=== PATIENT | male | born 1935 | race Caucasian/White ===

== ENCOUNTER 2016-11-29 09:04 | Inpatient (IN) | payer MEDICARE, OTHER ==
[~2016-11-29] VITALS: Ht 179.1 cm; Wt 97.3 kg
[2016-11-29] MEDS ORDERED: CHOL1CAP32 PO (09:35)
[2016-11-29] MEDS ORDERED: LISI-515 PO (09:35)
[2016-11-29] MEDS ORDERED: CO Q200C PO (09:35)
[2016-11-29] MEDS ORDERED: VITACAP7 PO (09:35)
[2016-11-29] MEDS ORDERED: OCUVTAB PO (09:35)
[2016-11-29] MEDS ORDERED: LEVO75TA3 PO (09:35)
[2016-11-29] MEDS ORDERED: MULT-65 PO (09:35)
[2016-11-29] MEDS ORDERED: GLUC1TAB38 PO (09:35)
[2016-11-29] MEDS ORDERED: CLIN1CAP5 PO (09:37)
[2016-12-10] MEDS ORDERED: ceFAZolin 2 GM PREMIX 50 ML IV SCH (07:45)
[2016-12-10] MEDS ORDERED: POVIDONE IODINE 5% (ANTISEPSIS KIT) 4 APPLICATIONS EACH NARE PRN (07:45)
[2016-12-10] MEDS ORDERED: CHLORHEXIDINE GLUCONATE 2 % 1 PACK (2 CLOTHS) TOPICAL PRN (07:45)
[2016-12-10] MEDS ORDERED: METOPROLOL TARTRATE 25 MG TAB PO PRN (07:45)
[2016-12-10] MEDS ORDERED: CHLORHEXIDINE GLUCONATE 4% SOLN 120 ML BTL TOPICAL SCH (07:45)
[2016-12-10] MEDS ORDERED: INSULIN HUMAN REGULAR 1,000 UNITS/10 ML VIAL SQ PRN (07:45)
[2016-12-10] MEDS ORDERED: SODIUM CHLORID 0.9% 500 ML IV PRN (07:45)
[2016-12-10] MEDS ORDERED: LACTATED RINGER'S 1000 ML IV PRN (07:45)
[2016-12-10 07:59] VITALS: BP 142/75; PULSE 52; RESP 18; TEMP 97.2; O2SAT 95
[2016-12-10] MEDS ORDERED: TRANEXAMIC ACID IV SCH ×4 (08:00)
[2016-12-10] MEDS ORDERED: SODIUM CHLORIDE 0.9% IV SCH ×4 (08:00)
[2016-12-10] MEDS ORDERED: GENTAMICIN SULFATE 80 MG/2 ML VIAL ONE (08:00)
[2016-12-10] MEDS ORDERED: EXPAREL PERI-ARTICULAR INJECTION (TOTAL VOL. 100 ML) P-ARTICULR SCH ×2 (08:00)
[2016-12-10] MEDS ORDERED: FAMOTIDINE 20 MG/2 ML VIAL ONE ×2 (08:52→09:33)
[2016-12-10] MEDS ORDERED: DEXAMETHASONE SOD PHOS 4 MG/ML VIAL ONE (09:33)
[2016-12-10] MEDS ORDERED: ACETAMINOPHEN 1000 MG/100 ML VIAL IV ONE (09:33)
[2016-12-10] MEDS ORDERED: MIDAZOLAM HCL 2 MG/2 ML VIAL ONE (09:33)
[2016-12-10] MEDS ORDERED: MAGNESIUM HYDROXIDE SUSP 30 ML CUP PO PRN (09:45)
[2016-12-10] MEDS ORDERED: ONDANSETRON HCL 4 MG/2 ML VIAL IVP PRN (09:45)
[2016-12-10] MEDS ORDERED: SODIUM CHLORIDE 0.9% FLUSH 5 ML FLUSH IVF PRN (09:45)
[2016-12-10] MEDS ORDERED: ACETAMINOPHEN/HYDROcodone 325 MG/7.5 MG TAB PO PRN ×2 (09:45)
[2016-12-10] MEDS ORDERED: CLINDAMYCIN 150 MG CAP PO PRN (09:45)
[2016-12-10] MEDS ORDERED: Post-op Orders (for Pharmacy) MISC XX ONE (09:45)
[2016-12-10] MEDS ORDERED: ZOLPIDEM TARTRATE 5 MG TAB PO PRN (09:45)
[2016-12-10] MEDS ORDERED: MORPHINE SULFATE 4 MG/ML INJ IV PUSH PRN (09:45)
[2016-12-10] MEDS ORDERED: TRANEXAMIC ACID INJ 0 MG in SODIUM CHLORIDE 0.9% INJ 100 ML IV SCH (09:45)
[2016-12-10] MEDS ORDERED: BUPIVACAINE LIPOSOME PF 1.3% 20 ML VIAL ONE (10:16)
[2016-12-10] MEDS ORDERED: PROPOFOL 200 MG/20 ML AMP IV ONE (12:00)
[2016-12-10] MEDS ORDERED: ONDANSETRON HCL 4 MG/2 ML VIAL IV PUSH ONE (12:00)
[2016-12-10] MEDS ORDERED: ePHEDrine/NS 25 MG/5 ML SYR IV ONE (12:00)
[2016-12-10] MEDS ORDERED: LACTATED RINGER'S 1000 ML INJ 1,000 ML IV ONE (12:00)
--- NOTE | 2016-12-10 12:30 | HHI.FF ---
Face to Face Verification Diagnosis: (1) Status post total left knee replacement Physical Therapy Gait training Knee: Total knee, Protocol: Left, Gait training, Full weight bearing Left LE Weight Bearing: WB as tolerated Left LE Range of Motion: Active ROM (AROM, AAROM, PROM, PRE. ROM goal is 0 to 140 degrees. ROM in the OR was 0 to 150 degrees.) Nursing Nursing: Dressing changes Dressing Changes: Daily dressing change, Coverderm/Primapore Additional Instructions Remove steristrips on postop day 14. I have seen patient Yury Carlson on 12/10/16. My clinical findings support the need for the requested home health care services because: Ltd mobility - disease progression Limited ability to care for self High risk of falls I certify that my clinical findings support that this patient is homebound because: Post-op weakness Unsteady gait/balance Unsafe to leave home unassisted Eduardo Sandoval MD (Charles) Dec 10, 2016 12:29
[2016-12-10] MEDS: LACTATED RINGER'S 1000 ML INJ 1,000 ML IV SCH ×2 (13:00→22:10)
[2016-12-10] MEDS ORDERED: MORPHINE SULFATE 8 MG/ML INJ ONE (13:03)
[2016-12-10] MEDS: KETOROLAC TROMETHAMINE 30 MG/ML (IVP) VIAL IVP SCH ×2 (13:10→18:47)
--- NOTE | 2016-12-10 13:40 | RADRPT ---
EXAM DATE/TIME: 12/10/2016 12:50 [facility] COMPARISON: No previous studies available for comparison. INDICATIONS : Post op left knee. MEDICAL HISTORY : None. SURGICAL HISTORY : None. ENCOUNTER: Initial ACUITY: 1 day PAIN SCORE: 0/10 LOCATION: Left Knee. FINDINGS: Left total knee arthroplasty has been performed. The tibial and femoral components appear well seated . A surgical drain is noted anterior suprapatellar region. CONCLUSION: Postoperative changes. Raphael Mackey MD on December 10, 2016 at 13:37 Board Certified Radiologist. This report was verified electronically.
[2016-12-10 14:00] VITALS: BP 143/74; PULSE 73; RESP 17; TEMP 95.1; O2SAT 99
[2016-12-10] MEDS ORDERED: DO NOT ADM ANY ANTICOAGULANT DRUGS PRN (14:45)
--- NOTE | 2016-12-10 14:58 | PD.CONS ---
HPI Service [facility] Consult Requested By Dr. Sandoval Reason for Consult medical management Primary Care Physician Rico Zamora M.D. Diagnoses: History of Present Illness This a pleasant 81-year-old elderly male who is generally in good health, prior history of bilateral hip replacement due to OA. Patient has history of osteoarthritis of the left knee. He was admitted for elective surgery, underwent a left total knee arthroplasty. Patient tolerated surgical procedure well, he has minimal pain. Hospitalist services are requested for medical management. Review of Systems Constitutional: DENIES: Diaphoretic episodes, Fatigue, Fever, Weight gain, Weight loss, Chills, Dizziness, Change in appetite, Night Sweats Endocrine: DENIES: Heat/cold intolerance, Polydipsia, Polyuria, Polyphagia Eyes: DENIES: Blurred vision, Diplopia, Eye inflammation, Eye pain, Vision loss , Photosensitivity, Double Vision Ears, nose, mouth, throat: DENIES: Tinnitus, Hearing loss, Vertigo, Nasal discharge, Oral lesions, Throat pain, Hoarseness, Ear Pain, Running Nose, Epistaxis, Sinus Pain, Toothache, Odynophagia Respiratory: DENIES: Apneas, Cough, Snoring, Wheezing, Hemoptysis, Sputum production, Shortness of breath Cardiovascular: DENIES: Chest pain, Palpitations, Syncope, Dyspnea on Exertion , PND, Lower Extremity Edema, Orthopnea, Claudication Gastrointestinal: DENIES: Abdominal pain, Black stools, Bloody stools, Constipation, Diarrhea, Nausea, Vomiting, Difficulty Swallowing, Anorexia Genitourinary: DENIES: Sexual dysfunction, Urinary frequency, Urinary incontinence, Urgency, Hematuria, Dysuria, Nocturia, Penile Discharge, Testicular Pain, Testicular Swelling Musculoskeletal: COMPLAINS OF: Joint pain, DENIES: Muscle aches, Stiffness, Joint Swelling, Back pain, Neck pain Integumentary: DENIES: Abnormal pigmentation, Nail changes, Pruritus, Rash Hematologic/lymphatic: DENIES: Bruising, Lymphadenopathy Immunologic/allergic: DENIES: Eczema, Urticaria Neurologic: DENIES: Abnormal gait, Headache, Localized weakness, Paresthesias, Seizures, Speech Problems, Tremor, Poor Balance Psychiatric: DENIES: Anxiety, Confusion, Mood changes, Depression, Hallucinations, Agitation, Suicidal Ideation, Homicidal Ideation, Delusions Past Family Social History Past Medical History OA skin cancer hypothyroid HTN Dupuytrens contractures Bradycardia Past Surgical History Right ankle replacement Bilateral hip replacement Dupuytren contractures surgery. Tonsillectomy Reported Medications Reported Meds & Active Scripts Active Reported Clindamycin (Clindamycin HCl) 150 Mg Cap 600 Mg PO DAILY PRN Co Q-10 (Coenzyme Q10 (Ubidecarenone)) 200 Mg Cap 200 Mg PO DAILY D3-1000 (Cholecalciferol) 1,000 Unit Cap 1 Unit PO DAILY B Complex (B-Complex Vitamins) 1 Cap 1 Cap PO DAILY Ocuvite (Multiple Vitamins W/ Minerals) 1 Tab 1 Tab PO DAILY Multi-Vitamin Daily (Multiple Vitamin) 1 Tab Tab 1 Tab PO DAILY Vzzaqiqglv-Moifvaoized-N[place]H Tab (Gluc/Shamar-MSM#2/C/D3/Jose/Born) 1 Each Tablet 3 Tab PO DAILY Levothyroxine (Levothyroxine Sodium) 75 Mcg Tab 75 Mcg PO DAILY Lisinopril 20 Mg Tab 20 Mg PO DAILY Allergies: Coded Allergies: No Known Allergies (Verified , 12/10/16) Active Ordered Medications Inpatient Medications Acetaminophen/ Hydrocodone Bitart ([place] 7.5-325 Mg) 2 tab Q4H PRN PO PAIN SCALE 5 TO 10; Start 12/10/16 at 09:45 Aspirin (Ecotrin Ec) 81 mg BID PO ; Start 12/10/16 at 21:00 Bupivacaine Liposome 20 ml/ Sodium Chloride 100 ml @ 200 mls/hr ONCE P- ARTICULR Last administered on 12/10/16 10:35; Start 12/10/16 at 08:00; Stop at 07:59 Cefazolin Sodium/ Dextrose 50 ml @ 100 mls/hr HORSE RACING ANALYST IV Last administered on 12/10/16 10:09; Start 12/10/16 at 07:45; Stop 12/10/16 at 10:47; Status DC Cefazolin Sodium/ Sodium Chloride (Ancef Inj/NS Inj) 100 ml @ 200 mls/hr Q6H IV ; Start 12/10/16 at 16:00; Stop 12/11/16 at 04:29 Chlorhexidine Gluconate (Chlorhexidine 2% Cloth) 3 pack HORSE RACING ANALYST PRN TOPICAL SEE LABEL COMMENTS Last administered on 12/10/16 07:20; Start 12/10/16 at 07:45 ; Stop 12/13/16 at 07:44 Chlorhexidine Gluconate 1 applic 1 applic ONCE TOPICAL ; Start 12/10/16 at 07:45 ; Stop 12/13/16 at 07:44 Cholecalciferol (Vitamin D3) 1,000 units DAILY PO ; Start 12/11/16 at 09:00 Clindamycin HCl (Cleocin) 600 mg UNSCH X1 PRN PO dental work; Start 12/10/16 at 09:45; Stop 12/13/16 at 09:44 Docusate Sodium (Colace) 100 mg BID PO ; Start 12/11/16 at 21:00 Insulin Human Regular (NovoLIN R INJ) See Protocol Table ... HORSE RACING ANALYST PRN SQ SEE PROTOCOL TABLE; Start 12/10/16 at 07:45; Stop 12/13/16 at 07:44 IV Flush (NS Flush) 2 ml UNSCH PRN IVF FLUSH AFTER USING IV ACCESS; Start 12/10 at 09:45 IV Flush 2 ml 2 ml BID IVF ; Start 12/10/16 at 21:00 Ketorolac Tromethamine 15 mg 15 mg Q6H IVP ; Start 12/10/16 at 13:00; Stop 12/12 at 07:01 Lactated Ringer's (Lr 1000 ml Inj) 1,000 ml @ 80 mls/hr [id number] IV ; Start at 09:40 Levothyroxine Sodium (Synthroid) 75 mcg DAILY@0600 PO ; Start 12/11/16 at 06:00 Lisinopril (Prinivil) 20 mg DAILY PO ; Start 12/11/16 at 09:00 Magnesium Hydroxide (Milk Of Magnesia Liq) 30 ml DAILY PRN PO CONSTIPATION; Start 12/10/16 at 09:45 Metoprolol Tartrate (Lopressor) 25 mg HORSE RACING ANALYST PRN PO SEE LABEL COMMENTS; Start 12/10/16 at 07:45; Stop 12/13/16 at 07:44 Miscellaneous Information ALL NURSING DEPARTME... UNSCH PRN .XX SEE LABEL COMMENTS; Start 12/10/16 at 14:45; Stop 12/11/16 at 14:44 Miscellaneous Information (Post-op Orders (for Pharmacy)) STAT ONCE XX ; Start 12/10/16 at 09:45; Stop 12/10/16 at 13:48; Status DC Morphine Sulfate (Morphine Inj) 4 mg Q3H PRN IV PUSH BREAKTHROUGH PAIN; Start 12/10/16 at 09:45 Multivitamins (Theragran) 1 tab DAILY PO ; Start 12/11/16 at 09:00 Non-Formulary Medication 3 tab DAILY PO ; Start 12/11/16 at 09:00; Stop at 09:00; Status DC Ondansetron HCl (Zofran Inj) 4 mg Q6H PRN IVP NAUSEA OR VOMITING; Start at 09:45 Povidone Iodine (Betadine 5% Antisepsis Kit) 1 applic HORSE RACING ANALYST PRN EACH NARE SEE LABEL COMMENTS Last administered on 12/10/16t 07:55; Start 12/10/16 at 07:45 ; Stop 12/13/16 at 07:44 Sodium Chloride (NS 500 ml Inj) 500 ml @ 30 mls/hr [id number] PRN IV SEE LABEL COMMENTS; Start 12/10/16 at 07:45; Stop 12/10/16 at 10:47; Status DC Tranexamic Acid 967 mg/Sodium Chloride 109.67 ml @ 200 mls/ hr ONCE IV ; Start 12/10/16 at 08:00; Stop 12/11/16 at 07:59 Tranexamic Acid/ Sodium Chloride (Cyklokapron Inj/ NS Inj) 100 ml @ 200 mls/hr UNSCH IV ; Start 12/10/16 at 09:45; Stop 12/10/16 at 10:48; Status DC Vit C/Vit E/Zinc/ Copper/Lutein (Ocuvite) 1 tab DAILY PO ; Start 12/11/16 at 09: 00 Vitamin B Complex/ Vitamin C (Allbee C) 1 tab DAILY PO ; Start 12/11/16 at 09:00 Zolpidem Tartrate (Ambien) 5 mg HS PRN PO SLEEP; Start 12/10/16 at 09:45 Family History Positive for Alzheimer's dementia Social History , has grown children. Active, plays golf, swims. Quit smoking, drinks 1.5 glass of wine per day, no illegal drug use. Physical Exam Vital Signs Vital Signs Date Time Temp Pulse Resp B/P Pulse Ox O2 Delivery O2 Flow Rate FiO2 12/10/16 07:59 97.2 52 18 142/75 95 Physical Exam GENERAL: This is a well-nourished, well-developed patient, in no apparent distress. SKIN: No rashes, ecchymoses or lesions. Cool and dry. HEAD: Atraumatic. Normocephalic. No temporal or scalp tenderness. EYES: Pupils equal round and reactive. Extraocular motions intact. No scleral icterus. No injection or drainage. ENT: Nose without bleeding, purulent drainage or septal hematoma. Throat without erythema, tonsillar hypertrophy or exudate. Uvula midline. Airway patent. NECK: Trachea midline. No JVD or lymphadenopathy. Supple, nontender, no meningeal signs. CARDIOVASCULAR: Regular rate and rhythm without murmurs, gallops, or rubs. RESPIRATORY: Clear to auscultation. Breath sounds equal bilaterally. No wheezes , rales, or rhonchi. GASTROINTESTINAL: Abdomen soft, non-tender, nondistended. No hepato-splenomegaly , or palpable masses. No guarding. MUSCULOSKELETAL: Left leg in CPM, intact sensation left foot. Able to dorsiflex left foot. No other joint abnormality. NEUROLOGICAL: Awake and alert and oriented 4. No focal deficits. Laboratory Laboratory Tests Test 12/10/16 07:58 Blood Type A POSITIVE Antibody Screen NEGATIVE Blood Bank Comment Imaging Last Impressions Knee X-Ray 12/10/16 0940 Signed Impressions: Service Date/Time: Saturday, December 10, 2016 12:50 - CONCLUSION: Postoperative changes. Raphael Mackey MD A/P Diagnosis: (1) Primary osteoarthritis of left knee (2) Status post total left knee replacement (3) Hypothyroid (4) HTN (hypertension) Assessment and Plan Thank you for this consultation, we will assist with medical management 81-year-old male with history of arthritis, status post left total knee arthroplasty. -Continue postoperative orthopedic care SHAWANDA hose and aspirin for DVT prophylaxis Continue with pain management Bowel regimen Physical therapy -Continue postoperative antibiotics Hypertension, stable Continue with lisinopril 20 mg by mouth daily Hypothyroid Continue with Synthroid 75 g by mouth daily CBC and BMP in the morning Plan of care discussed with patient, attending and registered nurse. Further management of the patient will be dependent on the hospital course This patient was seen by myself and Dr. Villagomez, this consultation is written on his behalf Problem Qualifiers (1) Hypothyroid: Qualified Code: E03.9 - Hypothyroidism, unspecified type (2) HTN (hypertension): Qualified Code: I10 - Essential hypertension Batool Castro Dec 10, 2016 14:58
[2016-12-10 16:00] VITALS: BP 132/72; PULSE 60; RESP 16; TEMP 95.1; O2SAT 100
[2016-12-10 18:52] VITALS: O2SAT 94
[2016-12-10 20:30] VITALS: BP 145/83; PULSE 59; RESP 18; TEMP 96.4; O2SAT 100
[2016-12-10] MEDS: ASPIRIN EC 81 MG TABEC PO SCH (22:44)
[2016-12-10] MEDS: SODIUM CHLORIDE 0.9% FLUSH 5 ML FLUSH IVF SCH (22:45)
[2016-12-11 00:30] VITALS: BP 121/62; PULSE 59; RESP 18; TEMP 96.6; O2SAT 98
[2016-12-11] MEDS: KETOROLAC TROMETHAMINE 30 MG/ML (IVP) VIAL IVP SCH ×3 (00:37→12:03)
[2016-12-11 04:00] VITALS: BP 107/63; PULSE 66; RESP 17; TEMP 97.2; O2SAT 97
[2016-12-11] MEDS ORDERED: LEVOTHYROXINE SODIUM 75 MCG TAB PO SCH (06:00)
--- NOTE | 2016-12-11 06:59 | PD.ORT.PN ---
Subjective Post Op Day #: 1 Subjective Remarks He is doing well with little pain. He was OOB to the chair. Range of Motion -15 to 94 degrees. Distance Walked 2 feet. Objective Vitals Vital Signs Date Time Temp Pulse Resp B/P Pulse Ox O2 Delivery O2 Flow Rate FiO2 12/11/16 04:00 97.2 66 17 107/63 97 12/11/16 01:37 18 12/11/16 00:30 96.6 59 18 121/62 98 12/10/16 21:00 Room Air 12/10/16 20:30 96.4 59 18 145/83 100 12/10/16 18:52 94 Nasal Cannula 2.00 12/10/16 16:00 95.1 60 16 132/72 100 12/10/16 14:00 95.1 73 17 143/74 99 12/10/16 13:30 58 18 131/78 98 Nasal Cannula 2 12/10/16 13:15 57 18 136/83 99 Nasal Cannula 2 12/10/16 13:00 59 18 126/73 97 Nasal Cannula 2 12/10/16 12:45 97.4 63 18 127/67 98 Nasal Cannula 2 12/10/16 07:59 97.2 52 18 142/75 95 I/O 12/10/16 12/10/16 12/10/16 12/11/16 12/11/16 12/11/16 07:00 15:00 23:00 07:00 15:00 23:00 Intake Total 1790 ml 480 ml 600 ml Output Total 325 ml 750 ml 850 ml Balance 1465 ml -270 ml -250 ml Intake Oral 240 ml 480 ml 600 ml IV Total 250 ml Other 1300 ml Output Urine Total 0 ml 500 ml 750 ml Drainage Total 175 ml 250 ml 100 ml Estimated Blood Loss 150 ml # Bowel Movements 0 0 Imaging Last 24 hours Impressions Knee X-Ray 12/10/16 0940 Signed Impressions: Service Date/Time: Saturday, December 10, 2016 12:50 - CONCLUSION: Postoperative changes. Raphael Mackey MD Objective Remarks He is resting comfortably, supine in bed in the CPM. The neurovascular status is intact. The dressing is dry and intact. Assessment & Plan Ortho Post Op Day #: 1 Problem List: (1) Status post total left knee replacement Plan: Continue postop care and PT. Assessment and Plan Condition: Good. Orthopaedically stable. DVT prophylaxis: ASA, TEDs, sequentials. Discharge plans : Home with C. Has appointment. Rx [place] 7.5/325 Eduardo Sandoval MD (Charles) Dec 11, 2016 06:59
[2016-12-11 07:28] LABS: HEMATOCRIT 34.4 % (39.0-51.0); REVIEW FLAG FINAL
[2016-12-11 07:31] VITALS: O2SAT 95
[2016-12-11] MEDS ORDERED: ASPI-99 PO (07:35)
[2016-12-11] MEDS ORDERED: HYDR-3580 PO (07:35)
[2016-12-11 07:41] VITALS: BP 115/66; PULSE 52; RESP 17; TEMP 96.5; O2SAT 99
[2016-12-11] MEDS: ASPIRIN EC 81 MG TABEC PO SCH (08:33)
[2016-12-11] MEDS: SODIUM CHLORIDE 0.9% FLUSH 5 ML FLUSH IVF SCH (08:33)
[2016-12-11] MEDS ORDERED: LISINOPRIL 20 MG TAB PO SCH (09:00)
[2016-12-11] MEDS ORDERED: [UNRECOGNIZED DRUG - OTHER] PO SCH (09:00)
[2016-12-11] MEDS ORDERED: COENZYME Q10 200 MG PO SCH (09:00)
[2016-12-11] MEDS ORDERED: MULTIVITAMIN-OPHTHALMIC 1 TAB PO SCH (09:00)
[2016-12-11] MEDS ORDERED: VITAMIN B COMPLEX/VIT C TAB PO SCH (09:00)
[2016-12-11] MEDS ORDERED: CHOLECALCIFEROL (VIT D3) 1000 UNIT TAB PO SCH (09:00)
[2016-12-11] MEDS ORDERED: MULTIVITAMIN TAB PO SCH (09:00)
[2016-12-11] MEDS: LACTATED RINGER'S 1000 ML INJ 1,000 ML IV SCH (10:40)
[2016-12-11 11:49] VITALS: BP 117/70; PULSE 76; RESP 17; TEMP 96.8; O2SAT 99
--- NOTE | 2016-12-11 12:11 | HHI.PR ---
Subjective Remarks Patient did walk today Offering no complaint Some ache at surgical site only Review of system for 10 point system otherwise unremarkable Objective Objective Results - Vital Signs Date Time Temp Pulse Resp B/P Pulse Ox O2 Delivery O2 Flow Rate FiO2 12/11/16 11:49 96.8 76 17 117/70 99 12/11/16 07:41 96.5 52 17 115/66 99 12/11/16 07:40 18 12/11/16 07:31 95 21 12/11/16 07:20 Room Air 12/11/16 04:00 97.2 66 17 107/63 97 12/11/16 00:30 96.6 59 18 121/62 98 12/10/16 21:00 Room Air 12/10/16 20:30 96.4 59 18 145/83 100 12/10/16 18:52 94 Nasal Cannula 2.00 12/10/16 16:00 95.1 60 16 132/72 100 12/10/16 14:00 95.1 73 17 143/74 99 12/10/16 13:30 58 18 131/78 98 Nasal Cannula 2 12/10/16 13:15 57 18 136/83 99 Nasal Cannula 2 12/10/16 13:00 59 18 126/73 97 Nasal Cannula 2 12/10/16 12:45 97.4 63 18 127/67 98 Nasal Cannula 2 I/O 12/10/16 12/10/16 12/10/16 12/11/16 12/11/16 12/11/16 06:59 14:59 22:59 06:59 14:59 22:59 Intake Total 1550 ml 720 ml 600 ml Output Total 325 ml 750 ml 850 ml Balance 1225 ml -30 ml -250 ml Intake Oral 720 ml 600 ml IV Total 250 ml Other 1300 ml Output Urine Total 0 ml 500 ml 750 ml Drainage Total 175 ml 250 ml 100 ml Estimated Blood Loss 150 ml # Bowel Movements 0 0 Result Diagram: 12/11/16 0600 Imaging Last Impressions Knee X-Ray 12/10/16 0940 Signed Impressions: Service Date/Time: Saturday, December 10, 2016 12:50 - CONCLUSION: Postoperative changes. Raphael Mackey MD Other Results Laboratory Tests Test 12/11/16 06:00 Hemoglobin 11.8 Hematocrit 34.4 Physical Exam Physical Exam GENERAL: This is a well-nourished, well-developed patient, in no apparent distress. SKIN: No rashes, ecchymoses or lesions. Cool and dry. HEAD: Atraumatic. Normocephalic. EYES: Extraocular motions intact. No scleral icterus. No injection or drainage. ENT: Airway patent. NECK: Trachea midline. No JVD. Supple CARDIOVASCULAR: Regular rate and rhythm without murmurs, gallops, or rubs. RESPIRATORY: Clear to auscultation. Breath sounds equal bilaterally. No wheezes , rales, or rhonchi. GASTROINTESTINAL: Abdomen soft, non-tender, nondistended. No hepato-splenomegaly , or palpable masses. No guarding. MUSCULOSKELETAL: Left leg in dressing. Intact sensation left foot. Able to dorsiflex left foot. No other joint abnormality. NEUROLOGICAL: Awake and alert and oriented 4. No focal deficits. A/P Assessment and Plan (1) Primary osteoarthritis of left knee (2) Status post total left knee replacement (3) Hypothyroid (4) HTN (hypertension) Plan 81-year-old male with history of arthritis, status post left total knee arthroplasty. -Continue postoperative orthopedic care SHAWANDA hose and aspirin for DVT prophylaxis Continue with pain management Bowel regimen Physical therapy -postoperative antibiotics as per orthopedic Hypertension, stable Continue with lisinopril 20 mg by mouth daily Hypothyroid Continue with Synthroid 75 g by mouth daily Labs reviewed Plan of care discussed with patient Hallie Villagomez MD Dec 11, 2016 12:11
[2016-12-11] MEDS ORDERED: DOCUSATE SODIUM 100 MG CAP PO SCH (21:00)
--- NOTE | 2016-12-12 09:07 | MP ---
cc: Mary FERGUSON. DATE OF SURGERY 12/10/2016 PREOPERATIVE DIAGNOSIS Primary osteoarthritis left knee POSTOPERATIVE DIAGNOSIS Primary osteoarthritis left knee OPERATION PERFORMED Left total knee arthroplasty with [place] Triathlon prosthesis (uncemented). SURGEON Katja Ferguson MD ASSESSMENT Jason Crump, CSFA ANESTHESIA Spinal with supplemental adductor canal block by Dr. Debra MD and supplemental local by the undersigned. INDICATIONS AND FINDINGS This 81-year-old man has had left knee pain for some several years worsening, especially five years ago. He has had treatment with arthroscopic surgery several times over the years. His pain has subsequently worsened recently so that he is only able to walk one-half mile because of the pain. He has catching. He has lateral pain. He has giving-way and cracking and difficulty standing from a seated position. Treatment has included analgesics, anti-inflammatory agents, activity modification, exercise, ambulatory aids without any improvement. Physical findings showed severe laxity in the lateral compartment with a genu valgum and an antalgic gait. There was crepitation and tenderness on motion. X-rays showed loss of articular cartilage to expose subchondral bone and [id number] appearance on the lateral side with osteophytes. There are tricompartmental osteophytes. There is also calcification in the soft tissues consistent with chondrocalcinosis. The prosthesis used was a [place] Triathlon prosthesis with the femur being a size 7 right cruciate-retaining uncemented, the tibia being a Tritanium baseplate of a size 8 with the spacer being a size 8 x 9 mm cruciate-retaining a of X3 polyethylene and the patella being a Tritanium backed 38 mm asymmetric patella. PROCEDURE The patient was brought to the clean-air operating suite. He received prophylactic antibiotics in the form of Ancef and also received tranexamic acid. Dr. Richardson did a spinal anesthetic and an abductor canal block. The patient was then placed in a supine position on the operating table with bolster under the left hip. A Pneumatic tourniquet was applied to the left thigh. The limb was prepped with alcohol, Hibiclens and Chloraprep and draped in the usual manner with the knee draped free. An appropriate time-out procedure was carried out. Local anesthesia was administered into the incision site with Exparel. The incision was then made from about three fingerbreadths above the superior medial pole of patella down to the tibial tubercle on the medial side. The incision was deepened through subcutaneous tissues to the retinacular structures which were exposed medially and laterally. A medial retinacular incision was made from the superior medial pole of patella down to the tibial tubercle and up into the quadriceps tendon splitting it longitudinally in the medial one third. The patella was reflected. The posterior surface of the patella was excised after debulking the infrapatellar fat pad. Medial and lateral meniscectomies were initiated. Medial and lateral dissection was carried out. Fenestrations were made in the distal end of the femur and proximal end of the tibia for intermedullary referencing guides. The distal femoral cutting guide and jig were assembled for a 5 degrees 8-mm cut. The cutting block was stabilized with pins. The jig was removed. The distal femoral cut was completed with the oscillating saw. The sizing guide was positioned on the femur along the white sides line in the epicondylar axis. The size was determined to be a size 7. The four-in-one cutting block was then positioned in place. Anterior and posterior cuts were made followed by posterior and anterior chamfer cuts. Osteophytes were trimmed. Attention was directed the tibia. The intramedullary referencing guide was positioned in place. This was stabilized with a pin for rotation. The depth of cut was verified with a stylus off the lateral side, setting to resect 2 mm under the low edge. When the cutting block was stabilized with pins, the depth of cut was verified with a spacer block. This was adjusted accordingly. The distal femoral cut was then completed with the oscillating saw taking care to avoid injury to associated structures. The proximal tibial bone fragment was then removed. The spacer block was again used to verify the appropriate depth of cut. The tibial baseplate trial chosen was a size 8. Bone plugs were placed in the distal femur and proximal tibia. A size 8 baseplate trial was positioned in place with a 9 mm spacer. Size 7 femoral trial was impacted onto the femur. The drill guide was positioned for a 38 mm asymmetric patella. Drill holes were made. The trial prosthesis was placed. The knee was taken through a range of motion which was easily 0 degrees extension to 150 degrees of flexion with excellent stability throughout the entire range and appropriate tracking of the patella. The patella trial was removed. Femoral drill holes were made and then this trial removed. The spacer was removed. The tibial punch was impacted through its guide and then removed. The tibial drill guide was position and drill holes made. The cut ends of bone were then cleaned with pulse lavage. Local anesthetic was administered throughout the knee with Exparel. Care was taken to be certain that there was an adequate amount in the posterior capsule. The tibial baseplate, which is a size 8, was impacted into place and seated appropriately. The 9 mm cruciate-retaining spacer was inserted. The femoral component was impacted onto the cleaned and dried femoral surface. This seated appropriately. The patella was applied with patella vice. Range of motion was again found to be easily zero to 150 degrees. The stability was excellent throughout the entire range of motion. Patellar tracking was appropriate. Drain was brought out the superolateral aspect of the suprapatellar pouch. The capsular structures and fascial structures were then repaired with #0 Vicryl interrupted [id number] sutures. The subcutaneous tissues were closed with 2-0 Vicryl interrupted simple sutures with buried knots. The skin was closed with continuous subcuticular closure of 4-0 Monocryl. The wound was dressed with Steri-Strips followed by dry dressing, sterile Sof-Rol, cooling pad, further sterile Sof-Rol and Alvarez bandage from the base of the toe to midthigh. The patient was transferred from the operating room to the recovery room in satisfactory condition having tolerated the procedure well. Counts were correct. Specimens none. Estimated blood loss was 150 mL. MD FELY Bermudez/SANDRO /12:23 PM /8:52 AM
== END 2016-12-11 16:44 | disposition home health service (06) | DRG 470 ==
LOC: HSDI 12-10 07:12 → N06A 12-10 13:50
PROVIDERS: ADMIT Orthopaedic Surgery; ATTEND Orthopaedic Surgery
PROC: 3E0T3CZ (ICD-10-PCS; 2016-12-10)
PROC: 0SRD0JA Replacement of Left Knee Joint with Synthetic Substitute, Uncemented, Open Approach (ICD-10-PCS; principal; 2016-12-10 09:37)
DX: M17.12 Unilateral primary osteoarthritis, left knee (principal); I10 Essential (primary) hypertension; E03.9 Hypothyroidism, unspecified; Z96.661 Presence of right artificial ankle joint; Z96.643 Presence of artificial hip joint, bilateral; M11.262 Other chondrocalcinosis, left knee; M21.062 Valgus deformity, not elsewhere classified, left knee; Z85.828 Personal history of other malignant neoplasm of skin
CPT/HCPCS: 73560; 85014; 85018; 86850; 86900; 86901; 94150; C1776; C9290; J0131; J0690; J1100; J1580; J1885; J2250; J2270; J2405; J3010; J7120

== ENCOUNTER → 2016-11-29 | Outpatient (CLI) | payer MEDICARE, OTHER ==
[~2016-11-29] MED LIST: CHOL1CAP32 PO; CLIN150 PO; CLIN1CAP5 PO; CO Q200C PO; GLUC1TAB38 PO; LEVO75TA3 PO; LISI-515 PO; MULT-65 PO; OCUVTAB PO; VITACAP7 PO
[2016-11-29 09:44] LABS: APTT (PATIENT) 25.4 SEC (24.3-30.1); PROTHROMBIN TIME - PATIENT 11.4 SEC (9.8-11.6)
[2016-11-29 09:57] LABS: BLOOD, URINE NEG (NEG); COMMENT (UR) CULT NOT INDICATED; CULTURE IF INDICATED CULT NOT INDICATED; GLUCOSE,URINE NEG (NEG); KETONE, URINE NEG (NEG); NITRITE,URINE NEG (NEG); SQUAMOUS EPITHELIAL CELL URINE <1 /hpf (0-5); URINE COLOR YELLOW (YELLW/STRAW)
[2016-11-29 09:57] LABS: HEMATOCRIT 39.7 % (39.0-51.0); MEAN CELL VOLUME 93.2 FL (80.0-100.0); MEAN CORPUSCULAR HEMOGLOBIN 31.9 PG (27.0-34.0); MEAN CORPUSCULAR HGB CONC 34.3 % (32.0-36.0); PLATELET COUNT 220 TH/MM3 (150-450); RED BLOOD COUNT 4.27 MIL/MM3 (4.50-5.90); RED CELL DISTRIBUTION WIDTH 13.7 % (11.6-17.2); REVIEW FLAG FINAL; WHITE BLOOD COUNT 4.4 TH/MM3 (4.0-11.0)
[2016-11-29 10:02] LABS: BICARBONATE 27.1 MEQ/L (21.0-32.0); POTASSIUM 4.6 MEQ/L (3.5-5.1)
--- NOTE | 2016-11-29 22:22 | EKG ---
Date Performed: 11/29/2016 Time Performed: 09:26:35 PTAGE: 81 years EKG: SINUS BRADYCARDIA LOW QRS VOLTAGE IN PRECORDIAL LEADS BORDERLINE ECG PREVIOUS TRACING : 10/19/2007 13.30 DOCTOR: Olamide Hernandez Interpretating Date/Time 11/29/2016 22:20:34
== END ==
LOC: CPRE 08:57
PROVIDERS: ATTEND Orthopaedic Surgery
DX: Z01.812 Encounter for preprocedural laboratory examination (principal); Z01.810 Encounter for preprocedural cardiovascular examination; M17.12 Unilateral primary osteoarthritis, left knee; M79.609 Pain in unspecified limb; I10 Essential (primary) hypertension; R94.31 Abnormal electrocardiogram [ECG] [EKG]
CPT/HCPCS: 36415; 80048; 81001; 85027; 85610; 85730; 93005